=== PATIENT | male | born 2000 | race Native Hawaiian/Other Pacific Islander ===

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

== ENCOUNTER 2021-01-26 | Emergency (ER) | payer OTHER | END 2021-01-26 17:23 | disposition home or self-care (01) | CPT/HCPCS: 71046; 87635; 99283 ==

== ENCOUNTER 2021-09-18 09:53 | Emergency (ER) | payer OTHER ==
[2021-09-18 10:07] VITALS: RESP 16; TEMP 98
--- NOTE | 2021-09-18 10:18 | ED ---
Upper Extremity HPI - General Chief Complaint: Extremity Injury, Upper Stated Complaint: L hand injury Time Seen by Provider: 09/18/21 10:08 Source: patient, RN notes reviewed Mode of arrival: ambulatory Limitations: no limitations - History of Present Illness Initial Comments: Patient presents after injuring his left hand about 30 minutes ago when he got angry and punched a wall. Patient complaining of pain to the area of the fourth and fifth metacarpophalangeal joints. There is a superficial abrasion noted. Denies pain into the phalanges. Some pain radiating proximally into the hand and to a lesser sac into the forearm area. Patient states the pain is exacerbated by movement, alleviated by rest, constant, radiation as stated, no other injuries. Up-to-date on tetanus. Patient is ambidextrous. MD Complaint: Injury to:: left, hand - Related Data Previous Rx's Medication Instructions Recorded predniSONE 50 mg PO DAILY #5 tab 01/26/21 Acetaminophen [Tylenol] 500 mg PO Q4-6H PRN #24 tab 09/18/21 Ibuprofen [Motrin] 600 mg PO Q8HR PRN #30 tab 09/18/21 Allergies Allergy/AdvReac Type Severity Reaction Status Date / Time No Known Allergies Allergy Verified 09/18/21 10:07 Review of Systems ROS Statement: Those systems with pertinent positive or pertinent negative responses have been documented in the HPI. ROS Other: All systems not noted in ROS Statement are negative. Past Medical History Past Medical History: No Reported History History of Any Multi-Drug Resistant Organisms: None Reported Past Surgical History: Appendectomy Additional Past Surgical History / Comment(s): pyloric stenosis Past Psychological History: ADD/ADHD, Depression Smoking Status: Vaper Past Alcohol Use History: None Reported Past Drug Use History: Marijuana General Exam - General Exam Comments Initial Comments: Mild distress secondary to left hand injury Limitations: no limitations General appearance: in distress Head exam: Present: atraumatic, normocephalic, normal inspection Eye exam: Present: normal appearance, EOMI ENT exam: Present: normal exam Neck exam: Present: normal inspection. Absent: tenderness, meningismus, lymphadenopathy Respiratory exam: Present: normal lung sounds bilaterally. Absent: respiratory distress, wheezes, rales, rhonchi, stridor Cardiovascular Exam: Present: regular rate, normal rhythm, normal heart sounds. Absent: systolic murmur, diastolic murmur, rubs, gallop, clicks GI/Abdominal exam: Present: soft, normal bowel sounds. Absent: distended, tenderness, guarding, rebound, rigid Extremities exam: Present: tenderness (Capillary refill less than 2 seconds. Radial pulse 2+ out of 4. No abnormality to phalanges, wrist, mild tenderness to the belly of the forearm musculature.), normal capillary refill, other (Patient has tenderness and swelling to the left fourth and fifth metacarpal phalangeal joint areas. To a lesser sac approximately. Superficial abrasion noted over the fourth MCP). Absent: full ROM, pedal edema, joint swelling Back exam: Present: normal inspection Course Vital Signs 09/18/21 10:04 Temperature 98 F Pulse Rate 70 Respiratory 16 Rate Blood Pressure 111/64 O2 Sat by Pulse 100 Oximetry Procedures - Orthopedic Splinting/Casting Injury #1 Side: left Upper Extremity Immobilizer: ulnar gutter (Short, boxer splint) Additional Comments: Distal neurovascular status intact both pre-and post-application Medical Decision Making - Medical Decision Making Patient treated with a boxer splint. Patient will require orthopedic follow-up. Patient has a fracture to the distal aspect of left fifth metacarpal. Patient education findings. Freeman treatment plan. Abrasions to hand were cleansed thoroughly with soap and water. Antibiotic ointment applied. Patient tolerated well. Patient was told to return to the ER for any signs or symptoms worsen. Told to return immediately if any other problems arise. All questions answered. Treatment plan discussed. Patient in agreement Every effort has been made to ensure accuracy of this dictation. However, due to the limitations of electronic medical records and dictation devices, errors in charting still occur. Disposition Clinical Impression: Closed displaced fracture of neck of left fifth metacarpal bone, Abrasion of left hand, initial encounter Narrative: Chronic retained foreign body Disposition: HOME SELF-CARE Condition: Good Instructions (If sedation given, give patient instructions): Hand Fracture (ED) Additional Instructions: Sling applied, splint applied, patient counseled and instructions. Given follow-up with orthopedics. Follow-up with your regular physician as directed. Return to the ER immediately if any symptoms worsen, new symptoms arise, or any other problems develop. Ibuprofen, acetaminophen Is patient prescribed a controlled substance at d/c from ED?: No Referrals: Espinoza Amaral MD [Medical Doctor] - 09/22/21
--- NOTE | 2021-09-18 10:45 | XR ---
Left hand and left forearm HISTORY: Trauma and pain 3 views of the left hand, 2 views of left forearm There is a fifth metacarpal fracture showing some volar angulation, minimal displacement, soft tissue swelling. Bone mineralization and joint spaces are otherwise maintained. 1 mm ossific densities pres ent medial to the proximal fifth phalanx which is indeterminate, possible foreign body seen on the ob lique exam and may be present within the dorsal soft tissues. IMPRESSION: Fifth metacarpal fracture, possible foreign body. Soft tissue swelling
[2021-09-18] MEDS ORDERED: ACETAMINOPHEN TAB 500 MG TAB PO STA (11:18)
[2021-09-18] MEDS ORDERED: IBUPROFEN 600 MG TAB PO STA (11:19)
[2021-09-18 11:43] VITALS: BP 110/70; PULSE 68
== END 2021-09-18 11:43 | disposition home or self-care (01) ==
LOC: EC 09:53
DX: S62.337A Displaced fracture of neck of fifth metacarpal bone, left hand, initial encounter for closed fracture (principal); F17.290 Nicotine dependence, other tobacco product, uncomplicated; F12.90 Cannabis use, unspecified, uncomplicated; W22.01XA Walked into wall, initial encounter
CPT/HCPCS: 29125; 99283

== ENCOUNTER 2022-10-22 15:23 | Emergency (ER) | payer OTHER ==
[2022-10-22 15:34] VITALS: RESP 18
[2022-10-22] MEDS ORDERED: IPRATROPIUM-ALBUTEROL 3 ML NEB INHALATION STA (15:41)
--- NOTE | 2022-10-22 15:47 | ED ---
URI HPI - General Chief Complaint: Upper Respiratory Infection Stated Complaint: JEANNINE Time Seen by Provider: 10/22/22 15:35 Source: patient, RN notes reviewed Mode of arrival: ambulatory Limitations: no limitations - History of Present Illness Initial Comments: This is a 22-year-old male who presents to the emergency department for coughing, congestion, and difficulty breathing. States that the symptoms started 1-2 days ago. Denies any sick contacts. States that he feels like he is getting a cold or bronchitis. Denies any chest pain, history of asthma, or other respiratory illness. States that he feels like he has a lot of phlegm that he needs to cough up. Denies any fevers or chills. Denies any fevers, chills, sore throat, chest pain, palpitations, abdominal pain, nausea, vomiting, diarrhea, back pain, or headaches. MD Complaint: cough, nasal congestion, other (JEANNINE) Onset/Timin -: days(s) - Related Data Previous Rx's Medication Instructions Recorded predniSONE 50 mg PO DAILY #5 tab 01/26/21 Acetaminophen [Tylenol] 500 mg PO Q4-6H PRN #24 tab 09/18/21 Ibuprofen [Motrin] 600 mg PO Q8HR PRN #30 tab 09/18/21 Albuterol Sulfate [Albuterol 1 puff PO Q4-6H PRN #8.5 gm 10/22/22 Sulfate Hfa] Azithromycin [Zithromax] 250 mg PO DIRECTED #6 tab 10/22/22 Promethazine/Dextromethorphan 5 ml PO Q4-6H PRN #473 ml 10/22/22 [Promethazine-Dm Syrup] predniSONE 50 mg PO DAILY 5 Days #5 tab 10/22/22 Allergies Allergy/AdvReac Type Severity Reaction Status Date / Time No Known Allergies Allergy Verified 10/22/22 15:34 Review of Systems ROS Statement: Those systems with pertinent positive or pertinent negative responses have been documented in the HPI. ROS Other: All systems not noted in ROS Statement are negative. Past Medical History Past Medical History: No Reported History History of Any Multi-Drug Resistant Organisms: None Reported Past Surgical History: Appendectomy Additional Past Surgical History / Comment(s): pyloric stenosis Past Psychological History: ADD/ADHD, Depression Smoking Status: Current every day smoker, Vaper Past Alcohol Use History: None Reported Past Drug Use History: Marijuana General Exam Limitations: no limitations General appearance: alert, in no apparent distress Head exam: Present: atraumatic, normocephalic, normal inspection Respiratory exam: Present: normal lung sounds bilaterally. Absent: respiratory distress, wheezes, rales, rhonchi, stridor Cardiovascular Exam: Present: regular rate, normal rhythm, normal heart sounds. Absent: systolic murmur, diastolic murmur, rubs, gallop, clicks Neurological exam: Present: alert, oriented X3, CN II-XII intact Psychiatric exam: Present: normal affect, normal mood Skin exam: Present: warm, dry, intact, normal color. Absent: rash Course Vital Signs 10/22/22 10/22/22 10/22/22 15:33 16:50 17:04 Temperature 97.5 F L Pulse Rate 74 82 85 Respiratory 18 Rate Blood Pressure 100/64 O2 Sat by Pulse 99 Oximetry 10/22/22 17:14 Temperature 97.8 F Pulse Rate 60 Respiratory 18 Rate Blood Pressure 141/80 O2 Sat by Pulse 100 Oximetry Medical Decision Making - Medical Decision Making This is a 22-year-old male who presents to the emergency department for coughing, JEANNINE, and congestion. Was pt. sent in by a medical professional or institution? @ -No Did you speak to anyone other than the patient for history? @ -No Did you review nursing and triage notes? @ -Yes, and I agree, it is accurate with regards to the patient's symptoms. Were old charts reviewed? @ -No Differential Diagnosis? @ -Differential Cough: Influenza, Covid, RSV, croup, allergic rhinitis, GERD, pneumonia, bronchitis, COPD, viral pharyngitis, streptococcal pharyngitis, this is not meant to be an all-inclusive list. -Differential Dyspnea: Coronary syndrome, arrhythmia, tamponade, asthma, COPD, pulmonary embolism, pneumonia, pneumothorax, pulmonary effusion, anaphylaxis, diabetic ketoacidosis, flailed chest, pulmonary contusion, diaphragmatic rupture, anemia, neuromuscular, this is not meant to be an all-inclusive list. X-rays interpreted by me (1pt min.)? @ -Chest x-ray obtained, my interpretation identifies no localized consolidations or infiltrates. What testing was considered but not performed? (CT, X-rays, U/S, labs)? Why? @ -None What meds were considered but not given? Why? @ -None Did you discuss the management of the patient with other professionals? @ -No Did you reconcile home meds? @ -No Was smoking cessation discussed for >3mins.? @ -No Was critical care preformed (if so, how long)? @ -No Were there social determinants of health that impacted care today? How? (Homelessness, low income, unemployed, alcoholism, drug addiction, transportation, low edu. Level, literacy, decrease access to med. care, long-term, rehab)? @ -No Was there de-escalation of care discussed even if they declined? (Discuss DNR or withdrawal of care, Hospice)? @ -No What co-morbidities impacted this encounter? (DM, HTN, Smoking, COPD, CAD, Cancer, CVA, Hep., AIDS, mental health diagnosis, sleep apnea, morbid obesity)? @ -Marijuana use Was patient admitted / discharged? @ -Discharged. Chest x-ray obtained revealing no acute findings. Patient negative for Covid, influenza, and RSV. He was given a DuoNeb breathing treatment and IM Solu-medrol in the emergency department. Patient had significant symptomatic improvement following the DuoNeb breathing treatment. Findings consistent with a bronchitis. Prescription for Z-Karl, albuterol inhaler, prednisone, and promethazine DM cough syrup provided with dosing instructions reviewed. Otherwise advised supportive care, drinking plenty of fluids, and following up with his PCP. Undiagnosed new problem with uncertain prognosis? @ -None Drug Therapy requiring intensive monitoring for toxicity (Heparin, Nitro, Insulin, Cardizem)? @ -None Were any procedures done? @ -None Diagnosis/symptom? @ -Bronchitis Acute, or Chronic, or Acute on Chronic? @ -Acute Uncomplicated (without systemic symptoms) or Complicated (systemic symptoms)? @ -Uncomplicated Side effects of treatment? @ -None Exacerbation, Progression, or Severe Exacerbation] @ -Not applicable Poses a threat to life or bodily function? @ -No Return precautions reviewed in depth, the patient is instructed to return to the emergency department with any new, worsening, or concerning symptoms. Patient verbalized understanding. This case was discussed in detail with the attending ED physician, Dr. Paz. Presentation, findings, and treatment plan discussed in detail as well. - Lab Data Lab Results 10/22/22 Range/Units 15:44 Influenza Type A (PCR) Not Detected (Not Detectd) Influenza Type B (PCR) Not Detected (Not Detectd) RSV (PCR) Not Detected (Not Detectd) SARS-CoV-2 (PCR) Not Detected (Not Detectd) - Radiology Data Radiology results: report reviewed, image reviewed Disposition Clinical Impression: Bronchitis Disposition: HOME SELF-CARE Instructions (If sedation given, give patient instructions): Acute Bronchitis (ED) Additional Instructions: Return to the emergency department with any new, worsening, or concerning sym ptoms. Take the antibiotic as prescribed for 5 days. Take the prednisone daily for 5 days. You can use the cough medication and inhaler every 4-6 hours as needed. Be aware that the cough medication may make you drowsy and you should take it at night until you know how it affects you. Follow up with your primary care provider in 1-2 days. Prescriptions: Albuterol Sulfate [Albuterol Sulfate Hfa] 1 puff PO Q4-6H PRN #8.5 gm PRN Reason: Shortness Of Breath predniSONE 50 mg PO DAILY 5 Days #5 tab Promethazine/Dextromethorphan [Promethazine-Dm Syrup] 5 ml PO Q4-6H PRN #473 ml PRN Reason: Cough Azithromycin [Zithromax] 250 mg PO DIRECTED #6 tab Is patient prescribed a controlled substance at d/c from ED?: No Referrals: None,Stated [Primary Care Provider] - 1-2 days
--- NOTE | 2022-10-22 16:03 | XR ---
EXAMINATION TYPE: XR chest 2V DATE OF EXAM: 10/22/2022 COMPARISON: 01/26/2021 HISTORY: Cough and shortness of breath TECHNIQUE: Frontal and lateral views of the chest are obtained. FINDINGS: FINDINGS: The lungs are clear of consolidative or abnormal interstitial opacity. There is no pleural effusion, pleural thickening or pneumothorax. The heart, pulmonary vasculature, mediastinum and hilum appear normal. The osseous structures soft tissues unremarkable. IMPRESSION: No acute cardiopulmonary process.
[2022-10-22] MEDS ORDERED: methylPREDNISolone SOD SUCCI 125 MG/2 ML VIAL IM ONE (16:15)
[2022-10-22 17:16] VITALS: BP 141/80; PULSE 60; TEMP 97.8
== END 2022-10-22 17:15 | disposition home or self-care (01) ==
LOC: EC 15:23
DX: J40 Bronchitis, not specified as acute or chronic (principal); F17.290 Nicotine dependence, other tobacco product, uncomplicated; F12.90 Cannabis use, unspecified, uncomplicated; Z20.822 Contact with and (suspected) exposure to COVID-19
CPT/HCPCS: 99284; 96372 ×2; 94640; 87636; 71046; 99285; J2930

== ENCOUNTER 2023-01-07 14:53 | Emergency (ER) | payer OTHER ==
[2023-01-07 15:09] VITALS: BP 116/68; PULSE 88; RESP 19; TEMP 97.5
[2023-01-07] MEDS ORDERED: ONDANSETRON 4 MG/2 ML VIAL IVP STA (15:11)
[2023-01-07] MEDS ORDERED: SODIUM CHLORIDE 0.9% 1,000 ML IV STA ×2 (15:11→17:32)
[2023-01-07] MEDS ORDERED: KETOROLAC 15 MG/ML 1 ML VIAL IVP STA (15:12)
--- NOTE | 2023-01-07 15:12 | ED ---
Alcohol HPI - General Chief Complaint: Alcohol Stated Complaint: Dizziness,vomiting Time Seen by Provider: 01/07/23 15:11 Source: patient, RN notes reviewed, old records reviewed Mode of arrival: ambulatory Limitations: no limitations - History of Present Illness Initial Comments: This is a 22-year-old male to the ER today. Patient resents today for ev aluation of feeling unwell. Patient admits to significant amount of alcohol last night, feeling weak today with persistent and uncontrolled nausea vomiting. Patient is unable to hold anything down. Denies diarrhea denies abdominal pain denies other complaints MD Complaint: alcohol withdrawal Last Drink: unknown (S night) -: hour(s) Previous Visits for Alcohol Intoxication?: No Recent Trauma: No Associated Symptoms: nausea, vomiting, diaphoresis, abdominal pain Treatments Prior to Arrival: none Chronic Alcohol Use: No - Related Data Previous Rx's Medication Instructions Recorded predniSONE 50 mg PO DAILY #5 tab 01/26/21 Acetaminophen [Tylenol] 500 mg PO Q4-6H PRN #24 tab 09/18/21 Ibuprofen [Motrin] 600 mg PO Q8HR PRN #30 tab 09/18/21 Albuterol Sulfate [Albuterol 1 puff PO Q4-6H PRN #8.5 gm 10/22/22 Sulfate Hfa] Azithromycin [Zithromax] 250 mg PO DIRECTED #6 tab 10/22/22 Promethazine/Dextromethorphan 5 ml PO Q4-6H PRN #473 ml 10/22/22 [Promethazine-Dm Syrup] predniSONE 50 mg PO DAILY 5 Days #5 tab 10/22/22 Allergies Allergy/AdvReac Type Severity Reaction Status Date / Time No Known Allergies Allergy Verified 01/07/23 15:09 Review of Systems ROS Statement: Those systems with pertinent positive or pertinent negative responses have been documented in the HPI. ROS Other: All systems not noted in ROS Statement are negative. Past Medical History Past Medical History: No Reported History History of Any Multi-Drug Resistant Organisms: None Reported Past Surgical History: Appendectomy Additional Past Surgical History / Comment(s): pyloric stenosis Past Psychological History: ADD/ADHD, Depression Smoking Status: Current every day smoker, Vaper Past Alcohol Use History: None Reported Past Drug Use History: Marijuana General Exam General appearance: alert, in no apparent distress, anxious Head exam: Present: atraumatic, normocephalic, normal inspection Eye exam: Present: normal appearance, PERRL, EOMI. Absent: scleral icterus, conjunctival injection, periorbital swelling ENT exam: Present: normal exam, mucous membranes dry Neck exam: Present: normal inspection. Absent: tenderness, meningismus, lymphadenopathy Respiratory exam: Present: normal lung sounds bilaterally. Absent: respiratory distress, wheezes, rales, rhonchi, stridor Cardiovascular Exam: Present: regular rate, normal rhythm, normal heart sounds. Absent: systolic murmur, diastolic murmur, rubs, gallop, clicks GI/Abdominal exam: Present: soft, normal bowel sounds. Absent: distended, tenderness, guarding, rebound, rigid Extremities exam: Present: normal inspection, full ROM, normal capillary refill. Absent: tenderness, pedal edema, joint swelling, calf tenderness Back exam: Present: normal inspection Neurological exam: Present: alert, oriented X3, CN II-XII intact Psychiatric exam: Present: normal affect, normal mood Skin exam: Present: warm, dry, intact, normal color. Absent: rash Course Vital Signs 01/07/23 15:06 Temperature 97.5 F L Pulse Rate 88 Respiratory 19 Rate Blood Pressure 116/68 O2 Sat by Pulse 100 Oximetry - Reevaluation(s) Reevaluation #1: 01/07/23 20:54 Record is reviewed Reevaluation #2: 01/07/23 20:54 Patient symptoms are dramatically improved Reevaluation #3: 01/07/23 20:55 Patient informed of results and questions have an answered Reevaluation #4: 01/07/23 20:55 Was pt. sent in by a medical professional or institution? @ -no Did you speak to anyone other than the patient for history? @ -no Did you review nursing and triage notes? @ -agree Were old charts reviewed? @ -no Differential Diagnosis? @ -prior EKG interpreted by me (3pts min.)? @ -yes X-rays interpreted by me (1pt min.)? @ -no CT interpreted by me (1pt min.)? @ -no U/S interpreted by me (1pt. min.)? @ -no What testing was considered but not performed? (CT, X-rays, U/S, labs)? Why? @ -no What meds were considered but not given? Why? @ -no Did you discuss the management of the patient with other professionals? @ -no Did you reconcile home meds? @ -no Was smoking cessation discussed for >3mins.? @ -no Was critical care preformed (if so, how long)? @ -no Were there social determinants of health that impacted care today? How? (Homelessness, low income, unemployed, alcoholism, drug addiction, transportation, low edu. Level, literacy, decrease access to med. care, skilled nursing, rehab)? @ -no Was there de-escalation of care discussed even if they declined? (Discuss DNR or withdrawal of care, Hospice)? @ -no What co-morbidities impacted this encounter? (DM, HTN, Smoking, COPD, CAD, Cancer, CVA, Hep., AIDS, mental health diagnosis, sleep apnea, morbid obesity)? @ -none Was patient admitted / discharged? @ -22 male to the emergency department for evaluation of persistent nausea vomiting and weakness after heart negative drinking.. Patient has otherwise no complaints, feeling improved significantly here in the ER with hydration can be discharged home Discharge Undiagnosed new problem with uncertain prognosis? @ -no Drug Therapy requiring intensive monitoring for toxicity (Heparin, Nitro, Insulin, Cardizem)? @ -no Were any procedures done? @ -no Diagnosis/symptom? @ -Alcohol withdrawal, dehydration Alcohol ketoacidosis Acute, or Chronic, or Acute on Chronic? @ -no Uncomplicated (without systemic symptoms) or Complicated (systemic symptoms)? @ -uncomplicated Side effects of treatment? @ -no Exacerbation, Progression, or Severe Exacerbation] @ -no Poses a threat to life or bodily function? @ -no Reevaluation #5: 01/07/23 20:55 Differential Weakness: Hypoglycemia, shock, sepsis, hyponatremia, anemia, infection, OH, ETOH, adverse medicine reaction, overdose, stroke, this is not meant to be an all-inclusive list. Medical Decision Making - Medical Decision Making 22 male to the emergency department for evaluation of persistent nausea vomiting and weakness after heart negative drinking.. Patient has otherwise no complai nts, feeling improved significantly here in the ER with hydration can be discharged home - Lab Data Result diagrams: 01/07/23 16:30 01/07/23 16:30 Lab Results 01/07/23 01/07/23 Range/Units 16:30 16:30 WBC 28.7 H (3.8-10.6) k/uL RBC 5.21 (4.30-5.90) m/uL Hgb 15.5 (13.0-17.5) gm/dL Hct 45.2 (39.0-53.0) % MCV 86.7 (80.0-100.0) fL MCH 29.8 (25.0-35.0) pg MCHC 34.4 (31.0-37.0) g/dL RDW 12.3 (11.5-15.5) % Plt Count 235 (150-450) k/uL MPV 7.3 Neutrophils % 91 % Lymphocytes % 4 % Monocytes % 4 % Eosinophils % 0 % Basophils % 0 % Neutrophils # 26.1 H (1.3-7.7) k/uL Lymphocytes # 1.2 (1.0-4.8) k/uL Monocytes # 1.2 H (0-1.0) k/uL Eosinophils # 0.1 (0-0.7) k/uL Basophils # 0.0 (0-0.2) k/uL Manual Slide Review Performed RBC Morphology Normal Sodium 139 (137-145) mmol/L Potassium 4.7 (3.5-5.1) mmol/L Chloride 106 (98-107) mmol/L Carbon Dioxide 15 L (22-30) mmol/L Anion Gap 18 mmol/L BUN 16 (9-20) mg/dL Creatinine 0.89 (0.66-1.25) mg/dL Est GFR (CKD-EPI)AfAm >90 (>60 ml/min/1.73 sqM) Est GFR (CKD-EPI)NonAf >90 (>60 ml/min/1.73 sqM) Glucose 109 H (74-99) mg/dL Calcium 9.7 (8.4-10.2) mg/dL Phosphorus 3.3 (2.5-4.5) mg/dL Magnesium 1.6 (1.6-2.3) mg/dL Total Bilirubin 1.0 (0.2-1.3) mg/dL AST 56 (17-59) U/L ALT 29 (4-49) U/L Alkaline Phosphatase 85 (38-126) U/L Total Protein 8.2 (6.3-8.2) g/dL Albumin 5.2 H (3.5-5.0) g/dL Lipase 19 L (23-300) U/L Serum Alcohol <10 mg/dL Disposition Clinical Impression: Alcohol withdrawal syndrome, Alcoholic ketoacidosis, Dehydration, Nausea and vomiting Disposition: HOME SELF-CARE Condition: Good Instructions (If sedation given, give patient instructions): Alcohol Withdrawal (ED) Is patient prescribed a controlled substance at d/c from ED?: No Referrals: None,Stated [Primary Care Provider] - 1-2 days Time of Disposition: 18:15
[2023-01-07 16:45] LABS: Basophils % (A) 0 %; Eosinophils # (A) 0.1 k/uL (0-0.7); Eosinophils % (A) 0 %; HCT 45.2 % (39.0-53.0); HGB 15.5 gm/dL (13.0-17.5); Lymphocytes # (A) 1.2 k/uL (1.0-4.8); Lymphocytes % (A) 4 %; MCH 29.8 pg (25.0-35.0); MCHC 34.4 g/dL (31.0-37.0); MCV 86.7 fL (80.0-100.0); Mean Platelet Volume 7.3; Monocytes # (A) 1.2 k/uL (0-1.0); Monocytes % (A) 4 %; Neutrophils # (A) 26.1 k/uL (1.3-7.7); Neutrophils % (A) 91 %; Platelet Count 235 k/uL (150-450); RBC 5.21 m/uL (4.30-5.90); RDW 12.3 % (11.5-15.5); WBC 28.7 k/uL (3.8-10.6)
[2023-01-07 17:00] LABS: ALT 29 U/L (4-49); AST 56 U/L (17-59); African American GFR (CKD) >90 (>60 ml/min/1.73 sqM); Albumin 5.2 g/dL (3.5-5.0); Alcohol <10 mg/dL; Alkaline Phosphatase 85 U/L (38-126); Anion Gap 18 mmol/L; Blood Urea Nitrogen 16 mg/dL (9-20); Calcium 9.7 mg/dL (8.4-10.2); Carbon Dioxide 15 mmol/L (22-30); Chloride 106 mmol/L (98-107); Glucose 109 mg/dL (74-99); Lipase 19 U/L (23-300); Magnesium 1.6 mg/dL (1.6-2.3); Non-African American GFR(CKD) >90 (>60 ml/min/1.73 sqM); Phosphorus 3.3 mg/dL (2.5-4.5); Potassium 4.7 mmol/L (3.5-5.1); Sodium 139 mmol/L (137-145); Total Protein 8.2 g/dL (6.3-8.2)
[2023-01-07 17:12] LABS: RBC Morphology Normal
== END 2023-01-07 19:10 | disposition home or self-care (01) ==
LOC: EC 14:53
DX: F10.939 Alcohol use, unspecified with withdrawal, unspecified (principal); E87.29 Other acidosis; E86.0 Dehydration; R11.2 Nausea with vomiting, unspecified; F17.290 Nicotine dependence, other tobacco product, uncomplicated; F12.90 Cannabis use, unspecified, uncomplicated; Z86.59 Personal history of other mental and behavioral disorders
CPT/HCPCS: 36415; 80053; 83690; 83735; 84100; 85025; 99284; 96374; 96375; 96361 ×2; G0480; J2405; J1885; 80320

== ENCOUNTER 2023-03-03 16:50 | Emergency (ER) | payer OTHER ==
[2023-03-03 16:57] VITALS: TEMP 98.4
[2023-03-03] MEDS ORDERED: KETOROLAC 15 MG/ML 1 ML VIAL IM STA (17:33)
--- NOTE | 2023-03-03 17:34 | ED ---
Upper Extremity HPI - General Chief Complaint: Extremity Injury, Upper Stated Complaint: Left Wrist Pain Time Seen by Provider: 03/03/23 17:09 Source: patient Mode of arrival: ambulatory Limitations: no limitations - History of Present Illness Initial Comments: Patient is a 22-year-old male presenting to the emergency room with complaints of pain in his left wrist. He reports that he has had pain and some mild increased swelling along with intermittent numbness and tingling of fourth and fifth digit ongoing for a few days. He states that approximately 2 years ago he injured the hand of the history wrist by punching a wall and he believes it was fractured and did not heal properly. He reports intermittent pain in the hand since that injury. He states that the pain in his hand seemed to worsen after pushing himself up on his bed recently. He denies any new trauma. He denies any persistent numbness and tingling, wounds or range of motion impairment not directly related to pain. He denies any other complaints or concerns. Overall he is healthy with no significant past medical history. - Related Data Previous Rx's Medication Instructions Recorded predniSONE 50 mg PO DAILY #5 tab 01/26/21 Acetaminophen [Tylenol] 500 mg PO Q4-6H PRN #24 tab 09/18/21 Ibuprofen [Motrin] 600 mg PO Q8HR PRN #30 tab 09/18/21 Albuterol Sulfate [Albuterol 1 puff PO Q4-6H PRN #8.5 gm 10/22/22 Sulfate Hfa] Azithromycin [Zithromax] 250 mg PO DIRECTED #6 tab 10/22/22 Promethazine/Dextromethorphan 5 ml PO Q4-6H PRN #473 ml 10/22/22 [Promethazine-Dm Syrup] predniSONE 50 mg PO DAILY 5 Days #5 tab 10/22/22 Allergies Allergy/AdvReac Type Severity Reaction Status Date / Time No Known Allergies Allergy Verified 03/03/23 16:57 Review of Systems ROS Statement: Those systems with pertinent positive or pertinent negative responses have been documented in the HPI. ROS Other: All systems not noted in ROS Statement are negative. Past Medical History Past Medical History: No Reported History History of Any Multi-Drug Resistant Organisms: None Reported Past Surgical History: Appendectomy Additional Past Surgical History / Comment(s): pyloric stenosis Past Psychological History: ADD/ADHD, Depression Smoking Status: Current every day smoker, Vaper Past Alcohol Use History: None Reported Past Drug Use History: Marijuana General Exam Limitations: no limitations General appearance: alert, in no apparent distress Head exam: Present: atraumatic, normocephalic, normal inspection Eye exam: Present: normal appearance, PERRL, EOMI. Absent: scleral icterus, conjunctival injection, periorbital swelling ENT exam: Present: normal exam, mucous membranes moist Neck exam: Present: normal inspection, full ROM Respiratory exam: Absent: respiratory distress, accessory muscle use Cardiovascular Exam: Present: regular rate GI/Abdominal exam: Absent: distended Left Forearm Wrist exam: Present: tenderness, swelling (Mid dorsal aspect), tenderness over anatomical snuff box. Absent: full ROM (Limited by pain), abrasion, laceration, ecchymosis, deformity, crepitus, dislocation, erythema Hand Wrist exam: Present: tenderness. Absent: full ROM (Limited by pain), laceration, ecchymosis, deformity, crepitus, dislocation Vascular: Absent: vascular compromise Back exam: Present: normal inspection Neurological exam: Present: alert, oriented X3, CN II-XII intact Psychiatric exam: Present: normal affect, normal mood Skin exam: Present: warm, dry, intact, normal color. Absent: rash Course Vital Signs 03/03/23 16:55 Temperature 98.4 F Pulse Rate 68 Respiratory 20 Rate Blood Pressure 123/73 O2 Sat by Pulse 99 Oximetry Medical Decision Making - Medical Decision Making @ -Was pt. sent in by a medical professional or institution (, PA, [employer]NA[employer], urgent care, hospital, or group home...) When possible be specific @ -No Did you speak to anyone other than the patient for history (EMS, parent, family, police, friend...)? What history was obtained from this source @ -No Did you review nursing and triage notes (agree or disagree)? Why? @ -I reviewed and agree with nursing and triage notes Were old charts reviewed (outside hosp., previous admission, EMS record, old EKG, old radiological studies, urgent care reports/EKG's, group home records)? Report findings @ -No old charts were reviewed Differential Diagnosis (chest pain, altered mental status, abdominal pain women, abdominal pain men, vaginal bleeding, weakness, fever, dyspnea, syncope, headache, dizziness, GI bleed, back pain, seizure, CVA, palpatations, mental health, musculoskeletal)? @ -Differential Musculoskeletal Muscular strain, contusion, ligament sprain, fracture, arthritis, septic arthritis, bursitis, cellulitis, muscle spasm, nerve compression, DVT, arterial occlusion, herpes zoster, electrolyte abnormality, tumor.... This is not meant to be in all inclusive list EKG interpreted by me (3pts min.). @ -None done X-rays interpreted by me (1pt min.). @ -X-ray left wrist and hand: Old boxer's fracture to fifth metacarpal with malalignment healing. Soft tissue swelling mid radial aspect without any fracture or dislocation. CT interpreted by me (1pt min.). @ -None done U/S interpreted by me (1pt. min.). @ -None done What testing was considered but not performed or refused? (CT, X-rays, U/S, labs )? Why? @ -None What meds were considered but not given or refused? Why? @ -None Did you discuss the management of the patient with other professionals (professionals i.e. , PA, [employer], lab, RT, psych nurse, licensed social worker, coverage specialist rn, teacher, railroad police officer, manager case management)? Give summary @ -No Was smoking cessation discussed for >3mins.? @ -No Was critical care preformed (if so, how long)? @ -No Were there social determinants of health that impacted care today? How? (Homelessness, low income, unemployed, alcoholism, drug addiction, transportation, low edu. Level, literacy, decrease access to med. care, senior living, rehab)? @ -No Was there de-escalation of care discussed even if they declined (Discuss DNR or withdrawal of care, Hospice)? DNR status @ -No What co-morbidities impacted this encounter? (DM, HTN, Smoking, COPD, CAD, Cancer, CVA, ARF, Chemo, Hep., AIDS, mental health diagnosis, sleep apnea, morbid obesity)? @ -None Was patient admitted / discharged? Hospital course, mention meds given and route, prescriptions, significant lab abnormalities, going to OR and other pertinent info. @ -22-year-old male presenting to the emergency room with complaints of pain in the left wrist and left hand worsening after bearing weight on his hand a few days ago without any relief. Previous injury but no recent injury. Will obtain x-ray of the hand and wrist and give Toradol for pain. No acute osseous abnormalities on imaging. Pain improved with Toradol. Anil wrap applied. Advised ice and anti-inflammatories for pain along with use of wrapping for sprain. Encouraged follow-up with primary care provider. Questions and concerns answered. Return parameters to the emergency room discussed. Undiagnosed new problem with uncertain prognosis? @ -No Drug Therapy requiring intensive monitoring for toxicity (Heparin, Nitro, Insulin, Cardizem)? @ -No Were any procedures done? @ -No Diagnosis/symptom? @ - Left wrist sprain Acute, or Chronic, or Acute on Chronic? @ -Acute on chronic Uncomplicated (without systemic symptoms) or Complicated (systemic symptoms)? @ -Uncomplicated Side effects of treatment? @ -No Exacerbation, Progression, or Severe Exacerbation? @ -No Poses a threat to life or bodily function? How? (Chest pain, [place], [place], pneumonia, PE, COPD, DKA, ARF, appy, cholecystitis, CVA, Diverticulitis, Homicidal, Suicidal, threat to staff... and all critical care pts) @ -No Case discussed with Dr. Oconnell - Radiology Data Radiology results: report reviewed, image reviewed Disposition Clinical Impression: Left wrist sprain Disposition: HOME SELF-CARE Condition: Stable Instructions (If sedation given, give patient instructions): Wrist Sprain (ED) Additional Instructions: Please continue conservative management with R. I. C. E. Rest joint when possible, apply ice for 20 minute increments every 2-3 hours, keep compression with Anil wrap intact when possible. Elevate joint when possible. Utilize [id number] analgesics of ibuprofen or Tylenol as needed for pain. Please follow-up with your primary care provider. Please return to the Emergency Department if symptoms worsen or any other concerns. Is patient prescribed a controlled substance at d/c from ED?: No Referrals: None,Stated [Primary Care Provider] - 1-2 days Time of Disposition: 18:44
--- NOTE | 2023-03-03 18:14 | XR ---
EXAMINATION TYPE: XR wrist complete 4 views LT, XR hand complete 3 views LT DATE OF EXAM: 03/03/2023 COMPARISON: 09/29/2021 HISTORY: 22-year-old male and swelling, history of previous fifth metacarpal fracture FINDINGS: Wrist: The radiocarpal and distal radial ulnar joint as well as the midcarpal compartment appear intact. No acute fracture, subluxation, or dislocation. There is a mild radial sided soft tissue swelling. Hand: Unchanged previous healed boxer's fracture fifth metacarpal neck with radial and palmar angulation. N o acute fracture, subluxation, or dislocation is seen. IMPRESSION: Wrist and hand: No acute osseous abnormality seen. Old boxer's fracture fifth metacarpal neck.
[2023-03-03 19:04] VITALS: BP 109/54; PULSE 49; RESP 16
== END 2023-03-03 19:04 | disposition home or self-care (01) ==
LOC: EC 16:50
DX: S63.502A Unspecified sprain of left wrist, initial encounter (principal); F17.290 Nicotine dependence, other tobacco product, uncomplicated; F12.90 Cannabis use, unspecified, uncomplicated; W22.01XA Walked into wall, initial encounter
CPT/HCPCS: 73110; 73130; 99283; 96372; J1885